=== PATIENT | male | born 1945 | race Caucasian/White ===

== ENCOUNTER 2021-08-21 16:16 | Inpatient (IN) | payer MEDICARE, BC ==
[~2021-08-21] VITALS: Ht 175.3 cm; Wt 94.3 kg
[2021-08-21 16:25] VITALS: BP 200/81
[2021-08-21 17:59] LABS: ABSOLUTE BASOPHILS 0.1 thou/uL (0.0-0.2); ABSOLUTE EOSINOPHILS 0.2 thou/uL (0.0-0.7); ABSOLUTE LYMPHOCYTES 1.5 thou/uL (0.8-5.3); ABSOLUTE MONOCYTES 0.8 thou/uL (0.0-1.2); ABSOLUTE NEUTROPHILS 7.7 thou/uL (1.6-8.1); BASOPHILS 1.1 %; EOSINOPHILS 2.2 %; HEMATOCRIT 42.4 % (42.0-52.0); HEMOGLOBIN 14.2 gm/dL (14.0-18.0); LYMPHOCYTES 14.3 %; MCH 29.8 pg (26.0-34.0); MCHC 33.6 g/dL (28.0-37.0); MCV 88.7 fL (80.0-100.0); MONOCYTES 8.1 %; MPV 9.1 fl. (7.2-11.1); NUCLEATED RBCS 0 /100WBC; PLATELET COUNT* 213 thou/uL (150-400); POLYS 74.3 %; RBC 4.78 mil/uL (4.50-6.00); RDW-CV 14.4 % (10.5-14.5); WBC 10.4 thou/uL (4.0-11.0)
[2021-08-21 18:07] LABS: CALCIUM 8.9 mg/dL (8.5-10.1)
[2021-08-21 18:18] LABS: TOTAL BILIRUBIN 0.8 mg/dL (<0.1-1.0); TOTAL PROTEIN 6.6 g/dL (6.4-8.2)
[2021-08-21 20:00] LABS: URINE BILIRUBIN NEGATIVE (Negative); URINE BLOOD NEGATIVE (Negative); URINE CLARITY CLEAR; URINE COLOR YELLOW; URINE GLUCOSE-RANDOM NEGATIVE (Negative); URINE KETONES NEGATIVE (Negative); URINE LEUKOCYTES NEGATIVE (Negative); URINE NITRITE NEGATIVE (Negative); URINE PROTEIN TRACE (Negative)
[2021-08-21 23:15] VITALS: BP 199/88
[2021-08-22] VITALS (11 sets, daily range): BP systolic 132–182; BP diastolic 53–90
--- NOTE | 2021-08-22 09:54 | EKG ---
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1945 Requested By: Manohar Rosado Order Number: [id number] MD: Alex Mittal Measurements Intervals [place] Rate: 41 P: [place]: QRS: 43 QRSD: 118 T: -84 QT: 641 QTc: 530 Interpretive Statements Atrial flutter with a bradycardic ventricular response Incomplete right bundle branch block Nonspecific T abnormalities, lateral leads No previous ECG available for comparison Electronically Signed On 08-22-2021 9:54:42 RISK CONSULTANT by Alex Mittal [email or web address] <ELECTRONICALLY SIGNED> By: Alex Mittal MD, FAC 08/22/2154 18 18 Alex Mittal MD, FAC /EPI
--- NOTE | 2021-08-22 11:37 | 2DMMODE ---
[place] [address] 2 D/M-MODE ECHOCARDIOGRAM Name: TYRONE VASQUEZ Room: [place] [address] ADM IN [place].#: [id number] Admission: 08/21/21 Attend Phys: Bharati Leary Discharge: Date of : 49 Date of Service: 08/22/21 1136 Report #: [id number] THIS REPORT FOR: cc: Destini Kurtz NP, Elizabeth NP Holkins,Alex Asif MD [facility] ~ APPROVED REPORT Study performed: 08/22/2021 11:10:36 EXAM: Comprehensive 2D, Doppler, and color-flow Echocardiogram Patient Location: In-Patient Room #: [facility] BSA: 2.20 HR: 56 bpm BP: 182/87 mmHg Other Information Study Quality: Good Indications Dyspnea 2D Dimensions IVSd: 15.76 (7-11mm) LVOT Diam: 20.35 (18-24mm) LVDd: 54.20 mm PWd: 11.76 (7-11mm) Ascending Ao: 32.23 (22-36mm) LVDs: 33.96 (25-40mm) Aortic Root: 33.26 mm Volumes Left Atrial Volume (Systole) LA ESV Index: 35.30 mL/m2 Aortic Valve AoV Peak Dallas.: 2.16 m/s AO Peak Gr.: 18.67 mmHg LVOT Max P.51 mmHg AO Mean Gr.: 9.05 mmHg LVOT Mean P.58 mmHg LVOT Max V: 1.17 m/s AO V2 VTI: 38.52 cm LVOT Mean V: 0.73 m/s SHUKRI (VTI): 1.91 cm2 LVOT V1 VTI: 22.58 [place] [address] 2 D/M-MODE ECHOCARDIOGRAM Name: TYRONE VASQUEZ Room: [address] IN .R.#: [id number] Admission: 08/21/21 Attend Phys: Bharati Leary Discharge: Date of : 49 Date of Service: 08/22/21 1136 Report #: [id number] E/A Ratio: 3.15 MV Decel. Time: 149.18 ms MV E Max [place].: 0.83 m/s MV PHT: 43.26 ms MVA (PHT): 5.09 cm2 TDI E/Lateral E': 6.38 E/Medial E': 6.92 Medial E' Dallas.: 0.12 m/s Lateral E' Dallas.: 0.13 m/s Pulmonary Valve PV Peak Dallas.: 1.17 m/s PV Peak Gr.: 5.51 mmHg Tricuspid Valve RAP Estimate: 5.00 mmHg TR Peak Gr.: 32.25 mmHg RVSP: 37.25 mmHg PA Pressure: 37.25 mmHg Left Ventricle The left ventricle is normal size. There is normal LV segmental wall motion. There is normal left ventricular wall thickness. Left ventricular systolic function is normal. The left ventricular ejection fraction is within the normal range. LVEF is 55-60%. This study is not technically sufficient to allow evaluation of the LV diastolic function due to atrial fibrillation. Right Ventricle Right ventricle is mildly dilated. The right ventricular systolic function is normal. Atria Left atrium is mildly dilated. Right atrium is mildly dilated. Aortic Valve Mild aortic valve sclerosis. No aortic regurgitation is present. No hemodynamically significant valvular aortic stenosis. Mitral Valve The mitral valve is normal in structure. Trace mitral regurgitation. No evidence of mitral valve stenosis. Tricuspid Valve The tricuspid valve is normal in structure. Mild tricuspid regurgitation. Mod[place] [address] 2 D/M-MODE ECHOCARDIOGRAM Name: CONGREGATIONALTYRONE Room: [address] IN [facility]#: [id number] Admission: 08/21/21 Attend Phys: Bharati Leary Discharge: Date of : 49 Date of Service: 08/22/21 1136 Report #: [id number] Pulmonic Valve The pulmonary valve is normal in structure. Trace pulmonic regurgitation. Great Vessels The aortic root is normal in size. IVC is normal in size and collapses >50% with inspiration. Pericardium There is no pericardial effusion. <Conclusion> The left ventricle is normal size. There is normal left ventricular wall thickness. Left ventricular systolic function is normal. The left ventricular ejection fraction is within the normal range. LVEF is 55-60%. This study is not technically sufficient to allow evaluation of the LV diastolic function due to atrial fibrillation. Right ventricle is mildly dilated. The right ventricular systolic function is normal. Left atrium is mildly dilated. Right atrium is mildly dilated. Mild aortic valve sclerosis. No aortic regurgitation is present. No hemodynamically significant valvular aortic stenosis. The mitral valve is normal in structure. Trace mitral regurgitation. The tricuspid valve is normal in structure. Mild tricuspid regurgitation. Moderate pulmonary hypertension. IVC is normal in size and collapses >50% with inspiration. There is no pericardial effusion. There is normal LV segmental wall motion. <ELECTRONICALLY SIGNED> By: Alex Mittal MD, FACC 08/22/21 1136 1136 1136 Alex Mittal MD, FACC /INF
--- NOTE | 2021-08-22 17:59 | TEE ---
[place] [address] TRANSESOPHAGEAL ECHOCARDIOGRAM Name: TYRONE VASQUEZ Room: [address] IN [facility]#: [id number] Admission: 08/21/21 Attend Phys: Bharati Leary Discharge: Date of : 49 Date of Service: 08/22/21 1759 Report #: [id number] THIS REPORT FOR: cc: Destini Kurtz NP, Elizabeth NP Liston, Michael J. MD [facility] ~ APPROVED REPORT Study performed: 08/22/2021 15:06:19 EXAM: Transesophageal Echocardiogram Patient Location: In-Patient Room #: [facility] Status: routine BSA: 2.18 HR: 62 bpm BP: 162/54 mmHg Rhythm: Atrial Fibrillation Indications Atrial Fibrillation Echo Enhancing Agent Indication: Rule out Shunt Agent(s) / Amount(s) Used: Agitated Saline 10 cc Procedure After obtaining informed consent, patient underwent transesophageal echo in the [employer]. Type of Sedation : Conscious Sedation Sedation was administered by Carol Rodríguez. Sedation start time: 1530 Case end Time: 1542 Sedation was achieved intravenously with: Versed (4) Fentanyl (100) Transesophageal probe was inserted and advanced into esophagus without difficulty by Esrdas Jones MD, FACC. Echo enhancement indication: R/O Septal defect. Echo enhancement agent administered: Agitated Saline The ADELA was performed without complications. Throughout the procedure, the blood pressure, pulse oximetry, cardiac rhythm, and rate were monitored. The patient tolerated the procedure without adverse effects. Recovery from conscious sedation was uneventful and vital signs were stable. [address] [address] TRANSESOPHAGEAL ECHOCARDIOGRAM Name: ROMAN CATHOLICTYRONE Room: [address] IN [facility]#: [id number] Admission: 08/21/21 Attend Phys: Bharati Leary Discharge: Date of : 49 Date of Service: 08/22/21 1759 Report #: [id number] Left Ventricle The left ventricle is normal size. There is normal LV segmental wall motion. Mild concentric left ventricular hypertrophy. Left ventricular systolic function is normal. LVEF is 55-60%. Right Ventricle The right ventricle is normal size. The right ventricular systolic function is normal. Atria Left atrium is moderately dilated. No thrombus is visualized in the left atrium or appendage. The interatrial septum is intact with no evidence for an atrial septal defect. Right atrium is moderately dilated. Aortic Valve The aortic valve is normal in structure. No aortic regurgitation is present. There is no aortic valvular stenosis. Mitral Valve The mitral valve is normal in structure. Trace mitral regurgitation. No evidence of mitral valve stenosis. Tricuspid Valve The tricuspid valve is normal in structure. Mild tricuspid regurgitation. Pulmonic Valve The pulmonary valve is normal in structure. There is no pulmonic valvular regurgitation. Great Vessels The aortic root is normal in size. Pericardium There is no pericardial effusion. <Conclusion> The left ventricle is normal size. Mild concentric left ventricular hypertrophy. Left ventricular systolic function is normal. LVEF is 55-60%. There is normal LV segmental wall motion. The interatrial septum is intact with no evidence for [place] [address] TRANSESOPHAGEAL ECHOCARDIOGRAM Name: TYRONE VASQUEZ Room: [address] IN ..#: [id number] Admission: 08/21/21 Attend Phys: Bharati Leary Discharge: Date of : 49 Date of Service: 08/22/211758 Report #: [id number] Left atrium is moderately dilated. No thrombus is visualized in the left atrium or appendage. Right atrium is moderately dilated. Trace mitral regurgitation. Mild tricuspid regurgitation. <ELECTRONICALLY SIGNED> By: Esdras Jones MD, FACC 08/22/211758 58 58 Esdras Jones MD, FACC /INF
[2021-08-23] VITALS: BP 186/90
[2021-08-23 04:00] VITALS: BP 193/98
[2021-08-23 05:58] VITALS: BP 183/94
[2021-08-23 07:51] VITALS: BP 176/92
[2021-08-23] MEDS ORDERED: NORVASC10 MG PO (09:15)
[2021-08-23] MEDS ORDERED: LOTENSIN40 MG PO (09:16)
[2021-08-23] MEDS ORDERED: CHLORTHALIDONE25 MG PO (09:16)
[2021-08-23] MEDS ORDERED: SPIRONOLACTONE25 MG PO (09:17)
[2021-08-23] MEDS ORDERED: ASA81BEC PO (09:17)
[2021-08-23] MEDS ORDERED: METFORMIN HCL500 M3 PO (09:18)
[2021-08-23] MEDS ORDERED: FLECAINIDE ACET50 M1 PO (09:34)
[2021-08-23] MEDS ORDERED: XARELTO20 MG PO (09:34)
[2021-08-23] MEDS ORDERED: TRIAMTERENE-HC1 EAC1 PO (09:35)
[2021-08-23 12:01] VITALS: BP 191/110
[2021-08-23 12:08] VITALS: BP 191/110
--- NOTE | 2021-08-23 14:10 | EKG ---
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1945 Requested By: Manohar Rosado Order Number: [id number] Reading MD: Alex Mittal Measurements Intervals [place] Rate: 48 P: LA: QRS: 30 QRSD: 114 T: QT: 431 QTc: 385 Interpretive Statements Atrial flutter RSR' in V1 or V2, probably normal variant Possible anteroseptal infarct, old Nonspecific repol abnormality, diffuse leads No previous ECG available for comparison Electronically Signed On 08-23-2021 14:10:04 [employer] by Alex Mittal [email or web address] <ELECTRONICALLY SIGNED> By: Alex Mittal MD, FACC 08/23/21 1410 163 163 Alex Mittal MD, FAC /EPI
--- NOTE | 2021-08-23 14:21 | EKG ---
[place] [address] ELECTROCARDIOGRAM REPORT Name: TYRONE VASQUEZ Room: [address] IN M.R.#: [id number] Admission: 08/21/21 Attend Phys: Bharati Leary Discharge: 08/23/21 Date of : 49 Date of Service: 08/23/21 0539 Report #: [id number] THIS REPORT FOR: //name// 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[id number] : 1945 Requested By: Esdras Jones Order Number: [id number] Christina MD: Alex Mittal Measurements Intervals [place] Rate: 84 P: 51 MD: 179 QRS: -55 QRSD: 166 T: 90 QT: 454 QTc: 537 Interpretive Statements Atrial-sensed ventricular-paced rhythm No further analysis attempted due to paced rhythm Compared to ECG 08/21/2021 19:19:20 Atrial flutter no longer present Incomplete right bundle-branch block no longer present T-wave abnormality no longer present Electronically Signed On 08-23-2021 14:21:09 HISTOTECHNICIAN by Alex Mittal [email or web address] <ELECTRONICALLY SIGNED> By: Alex Mittal MD, [facility] 08/23/21 1421 0539 0539 Alex Mittal MD, [facility] /EPI
--- NOTE | 2021-08-23 14:23 | EKG ---
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1945 Requested By: Esdras Jones Order Number: [id number] Christina MD: Alex Mittal Measurements Intervals [place] Rate: 84 P: [place]: 187 QRS: 217 QRSD: 170 T: -1 QT: 431 QTc: 510 Interpretive Statements Atrial-ventricular dual-paced complexes No further analysis attempted due to paced rhythm Compared to ECG 08/23/2021 05:39:17 Atrial-sensed ventricular-paced complex(es) or rhythm no longer present Electronically Signed On 08-23-2021 14:23:38 STAVE LOG CUT OFF SAW OPERATOR by Alex Mittal [email or web address] <ELECTRONICALLY SIGNED> By: Alex Mittal MD, FACC 08/23/21 1423 1017 1017 Alex Mittal MD, [facility] /EPI
--- NOTE | 2021-08-24 15:19 | CON ---
[address] [address] CONSULTATION Name: TYRONE VASQUEZ Room: [address] IN .R.#: [id number] Admission: 08/21/21 Attend Phys: Toi Ravi Discharge: 08/23/21 Date of : 49 Report #: [id number] THIS REPORT FOR: cc: Destini Kurtz NP, Elizabeth NP Liston, Michael J. MD [facility] ~ cc: Destini Kurtz NP DATE OF CONSULTATION: 08/22/2021 CARDIOLOGY CONSULTATION INDICATION: Atrial flutter with slow ventricular response rate. HISTORY OF PRESENT ILLNESS: The patient is a 76-year-old gentleman with no prior cardiac history. He has had multiple orthopedic surgeries including knee and bilateral shoulder surgeries without difficulty. He presented to his primary physician's office with symptoms of fatigue, thinking he may have COVID-19. In the primary care office, he was noted to be significantly bradycardic and referred to the Emergency Room for further evaluation. In the Emergency Room, he was found to be in atrial flutter with a slow ventricular response rate. His blood pressure is elevated. He denies chest pain. He has been having dyspnea and shortness of breath for the past 10 days, worse for the past 3 days. He reports being told many years ago he may have had an irregular heart rhythm by primary physician without significant followup regarding that. PAST MEDICAL HISTORY: Bilateral shoulder replacements, left knee replacement, ankle surgery as well, mostly at [facility] in [facility]. SOCIAL HISTORY: The patient drinks alcohol infrequently. He has never smoked. 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 ALLERGIES: None documented. HOME MEDICATIONS: None. PHYSICAL EXAMINATION: VITAL SIGNS: Blood pressure 182/87, pulse is in the 40s, and slightly irregular. GENERAL: This is a pleasant gentleman in no distress. Mood and affect appropriate. HEENT: Extraocular muscles intact. [place] [address] CONSULTATION Name: TYRONE VASQUEZ Room: [address]#: [id number] Admission: 08/21/21 Attend Phys: Toi Ravi Discharge: 08/23/21 Date of : 49 Report #: [id number] NECK: Shows no jugular venous distention. CHEST: Reveals clear lung conti without wheezes or rales. CARDIAC: Reveals an irregular rhythm that is bradycardic without gallop or murmur. ABDOMEN: Reveals normal bowel sounds. The abdomen is soft, nontender. EXTREMITIES: Shows no edema. Pulses 2+ and palpable. SKIN: Dry. DIAGNOSTIC DATA: A 12-lead EKG shows a rapid atrial flutter with bradycardic response. I do not appreciate acute ST or T-wave abnormalities. LABORATORY DATA: Reviewed. Sodium 141, potassium 3.0, chloride 104, bicarb 29, BUN 24, creatinine 1.4, serum glucose 108. LFTs within normal limits. High sensitivity troponins, 70, 75 and 78 sequentially. NT-proBNP 2081. CBC within normal limits. Chest x-ray, mild pulmonary vascular congestion. IMPRESSION AND RECOMMENDATIONS: 1. Atrial flutter with slow ventricular response rate. The patient is on no medications. We will proceed with transesophageal echocardiogram to rule out intracardiac thrombus. If this appears okay, we will proceed with dual-chamber pacemaker placement and cardioversion. Obtain surface echocardiogram to evaluate left ventricular systolic function. 2. Heart failure as evidenced on chest x-ray and elevated NT-proBNP. We will give a single dose IV Lasix for diuresis. Surface echocardiogram will be ordered. Further treatment pending those results. 3. Hypertension. Blood pressure somewhat improved after a single dose of nifedipine. We will give some diuretics this morning and follow clinically. <ELECTRONICALLY SIGNED> By: Esdras Jones MD, FACC 08/24/21 1519 0757 0819Micross Jones MD, FACC /nt
--- NOTE | 2021-08-26 15:35 | CARD ---
[address] [address] CARDIAC CATH REPORT Name: TYRONE VASQUEZ Room: [address]#: [id number] Admission: 08/21/21 Attend Phys: Toi Ravi Discharge: 08/23/21 Date of : 49 Report #: [id number] THIS REPORT FOR: cc: Destini Kurtz NP, Elizabeth NP Liston, Michael J. MD [facility] ~ APPROVED REPORT Study performed: 08/22/2021 15:49:31 Patient Status: In-Patient Room #: [facility] Exam: Insertion of Dual Chamber Permanent Pacemaker Indications: Sick sinus syndrome with paroxysmal atrial arrhythmias The patient is a 76 year-old mmale with a history of Sick sinus syndrome with paroxysmal atrial arrhythmias. Conscious Sedation Start time: 1616 End Time: 1658 Fentanyl 50.0 mcg Versed 2.0 mg Synchonized Cardioversion was also performed at 300 joules Implanted Devices: Miesha Spangler [id number] SN - [id number] Medtronic 5076-45cm SN- [id number] Medtronic 5076-52cm [facility] [id number] Procedure The patient underwent informed consent. We discussed the details of the procedure including the risks, which include, but not limited to bleeding, infection, vascular damage, cardiac perforation, and pneumothorax. He understood these risks and was willing to proceed. As such, he was brought to the EP/Cardiac Catheterization laboratory in a fasting and sedated state and prepped and draped in a sterile fashion, received IV antibiotics prior to initiation of the procedure and a venogram was performed showing patency of the left axillary vein. The patient underwent conscious sedation, with no related complications. The patient was brought to the EP/Cardiac Catheterization laboratory and the left chest and shoulder were prepped and draped [place] [address] CARDIAC CATH REPORT Name: TYRONE VASQUEZ Room: [address]#: [id number] Admission: 08/21/21 Attend Phys: Toi Ravi Discharge: 08/23/21 Date of : 49 Report #: [id number] During this case, Fluoroscopy and no contrast were used for imaging. IV conscious sedation was used throughout procedure with appropriate monitoring and was performed in the presence of a registered nurse who was an independent trained observer other than the physician performing the procedure. The left subclavian region was infiltrated with 2% Lidocaine subcutaneous anesthesia. A transverse incision was made in the left upper chest cavity. The subcutaneous pocket was formed via blunt dissection. Percutaneous venous access was achieved and an introducer sheath was inserted into the left Subclavian vein. Sheaths were positions using the modified Seldinger technique Through the introducer sheaths the atrial and ventricular lead wires were positioned in the right atrial appendage and right ventricular apex respectively. Utilizing fluoroscopic guidance, the atrial and ventricular lead wires were advanced over the wires and positioned in the right atria and right ventricle respectively. Capturing and sensing thresholds were verified. The ventricular lead was interrogated and Electrode Parameters At the time of implant atrial and ventricular lead thresholds were checked and deemed to be satisfactory. Pacing impedances were stable. There was no diaphragmatic or phrenic nerve stimulation with maximum output pacing. Dual Chamber The atrial and ventricular leads were then secured using 0 silk sutures. The subcutaneous pocket was irrigated with ancef antibiotic solution.The atrial and ventricular leads were attached to the appropriate receptacles on the pulse generator and set screws firmly tightened to insure adequate contact and stability. The lead and pulse generator were placed into the subcutaneous pocket. Sharp and sponge counts were confirmed to be correct. At this time the pocket was closed subcutaneously with a 2.0 Vicryl and the skin was closed with a 4.0 Vicryl. The operative site was dressed in sterile fashion with skin affix and the patient was transferred to the floor in stable condition. Complications The patient tolerated the procedure well and there were no complications [place] [address] CARDIAC CATH REPORT Name: TYRONE VASQUEZ Room: [address] IN [facility].#: [id number] Admission: 08/21/21 Attend Phys: Toi Ravi Discharge: 08/23/21 Date of : 49 Report #: [id number] Findings Specimens Removed: N/A Estimated Blood Loss: minimal Conclusion 1. Sick sinus syndrome with paroxysmal atrial arrhythmias. 2. Successful placement of a dual-chamber pacemaker with atrial and ventricular lead placement. Recommendations 1. Follow-up site check in 1 week. 2. Follow-up device interrogation in 4 to 6 weeks. <ELECTRONICALLY SIGNED> By: Esdras Jones MD, FACC 08/26/21 1535 1535 1535Micross Jones MD, FACC /INF
== END 2021-08-23 13:00 | disposition home or self-care (01) | DRG 242 ==
LOC: M.ERS 16:16 → M.TBA-ER 19:15 → M.2W 08-22 08:06
PROVIDERS: Physician Assistant; ADMIT Internal Medicine; ATTEND Internal Medicine
DX: I48.91 Unspecified atrial fibrillation (principal); I50.31 Acute diastolic (congestive) heart failure; I48.92 Unspecified atrial flutter; I11.0 Hypertensive heart disease with heart failure; Z96.612 Presence of left artificial shoulder joint; Z96.611 Presence of right artificial shoulder joint; Z96.652 Presence of left artificial knee joint; E87.6 Hypokalemia; E78.5 Hyperlipidemia, unspecified; I49.5 Sick sinus syndrome; Z79.899 Other long term (current) drug therapy

== ENCOUNTER → 2021-11-06 | Outpatient (CLI) | payer MEDICARE, BC ==
[~2021-11-06] MED LIST: ASA81BEC PO; CHLORTHALIDONE25 MG PO; FLECAINIDE ACET50 M1 PO; LOTENSIN40 MG PO; METFORMIN HCL500 M3 PO; NORVASC10 MG PO; SPIRONOLACTONE25 MG PO; TRIAMTERENE-HC1 EAC1 PO; XARELTO20 MG PO
[2021-11-06 12:12] LABS: ABSOLUTE BASOPHILS 0.1 thou/uL (0.0-0.2); ABSOLUTE EOSINOPHILS 0.1 thou/uL (0.0-0.7); ABSOLUTE LYMPHOCYTES 1.3 thou/uL (0.8-5.3); ABSOLUTE NEUTROPHILS 11.2 thou/uL (1.6-8.1); BASOPHILS 0.7 %; HEMATOCRIT 44.1 % (42.0-52.0); HEMOGLOBIN 14.4 gm/dL (14.0-18.0); LYMPHOCYTES 9.3 %; MCHC 32.7 g/dL (28.0-37.0); MCV 88.6 fL (80.0-100.0); MONOCYTES 7.2 %; MPV 8.9 fl. (7.2-11.1); NUCLEATED RBCS 0 /100WBC; PLATELET COUNT* 266 thou/uL (150-400); POLYS 81.8 %; RBC 4.98 mil/uL (4.50-6.00); RDW-CV 15.3 % (10.5-14.5); WBC 13.7 thou/uL (4.0-11.0)
[2021-11-06 12:37] LABS: ALBUMIN 3.8 g/dL (3.4-5.0); CALCIUM 9.4 mg/dL (8.5-10.1); CREATININE 1.2 mg/dL (0.6-1.3); POTASSIUM 3.3 mmol/L (3.5-5.1); TOTAL BILIRUBIN 1.1 mg/dL (<0.1-1.0); TOTAL PROTEIN 7.4 g/dL (6.4-8.2)
== END ==
LOC: M.LAB 11:52
PROVIDERS: ATTEND Nurse Practitioner
DX: R93.89 Abnormal findings on diagnostic imaging of other specified body structures (principal); R05.9 Cough, unspecified; R06.02 Shortness of breath; J81.0 Acute pulmonary edema; I49.5 Sick sinus syndrome; Z95.0 Presence of cardiac pacemaker